=== PATIENT | female | born 2000 | race Caucasian/White ===

== ENCOUNTER 2020-05-18 21:45 | Emergency (ER) | payer MEDICAID ==
[~2020-05-18] VITALS: Ht 162.6 cm; Wt 81.0 kg
[~2020-05-18 21:45] MED LIST: CLON-529 PO; DIVA125T31 PO; METH20CP12 PO; ZIPR20CA12 PO
--- NOTE | 2020-05-18 22:47 | NUR ---
pt refused her blood draw. Informed phleb to tell PA and she did.
--- NOTE | 2020-05-18 22:48 | NUR ---
Dr Holm at BS.
--- NOTE | 2020-05-18 22:54 | NUR ---
PT UPSET DURING BLOOD DRAW BUT ABLE TO COMPLETE AND QUICKLY BACK TO RELAXED AND COOPERATIVE.
[2020-05-18 23:15] LABS: URINE HCG NEGATIVE (NEG)
[2020-05-18 23:18] LABS: BASOPHILS % (AUTO) 0.4 % (0-1); EOSINOPHILS # (AUTO) 0.6 X10'3 (0-0.9); EOSINOPHILS % (AUTO) 5.6 % (0-6); HEMATOCRIT 38.4 % (35.0-45.0); HEMOGLOBIN 12.8 g/dl (12.0-16.0); LYMPHOCYTES # (AUTO) 2.8 X10'3 (1.1-4.8); LYMPHOCYTES % (AUTO) 27.7 % (21-51); MEAN CORPUSCULAR HEMOGLOBIN 29.4 PG (27.0-31.0); MEAN CORPUSCULAR HGB CONC 33.5 g/dL (33.0-36.5); MEAN CORPUSCULAR VOLUME 87.9 FL (78-98); MEAN PLATELET VOLUME 7.9 FL (7.4-10.4); MONOCYTES # (AUTO) 0.7 X10'3 (0-0.9); MONOCYTES % (AUTO) 7.3 % (2-12); NEUTROPHILS # (AUTO) 5.9 X10'3 (1.8-7.7); PLATELET COUNT 288 X10'3 (140-440); RED BLOOD COUNT 4.37 X10'6 (4.20-5.60); RED CELL DISTRIBUTION WIDTH 13.5 % (11.5-14.5)
[2020-05-18 23:21] LABS: ALANINE AMINOTRANSFERASE 26 U/L (12-78); ALBUMIN 3.7 G/DL (3.4-5.0); ALBUMIN/GLOBULIN RATIO 0.9 (1.1-1.5); ALKALINE PHOSPHATASE 96 IU/L (20-180); ANION GAP 11 (8-16); ASPARTATE AMINO TRANSFERASE 14 U/L (10-37); BILIRUBIN,TOTAL 0.1 MG/DL (0.1-1.0); BLOOD UREA NITROGEN 17 MG/DL (7-18); BUN/CREATININE RATIO 29.3 (6.6-38.0); CALCIUM 9.2 MG/DL (8.5-10.1); CHLORIDE 107 MMOL/L (99-107); CREATININE 0.58 MG/DL (0.40-0.90); ETHANOL < 0.010 GM/DL (0.0-0.010); GLUCOSE 98 MG/DL (70-104); POTASSIUM 4.9 MMOL/L (3.5-5.1); SODIUM 143 MMOL/L (135-145); TOTAL CARBON DIOXIDE 25.3 MMOL/L (24-32); TOTAL PROTEIN 7.7 G/DL (6.4-8.2); eGFR > 90 ML/MIN
[2020-05-18 23:32] LABS: URINE AMPHETAMINE SCREEN NEGATIVE (Neg); URINE BARBITUATE SCREEN NEGATIVE (Neg); URINE BENZODIAZEPINES SCREEN NEGATIVE (Neg); URINE CANNABINOID SCREEN NEGATIVE (Neg); URINE COCAINE SCREEN NEGATIVE (Neg); URINE METHADONE SCREEN NEGATIVE (Neg); URINE OPIATE SCREEN NEGATIVE (Neg); URINE PHENCYCLIDINE SCREEN NEGATIVE (Neg)
--- NOTE | 2020-05-19 00:47 | NUR ---
Pt resting with eyes closed in no apparent distress. Remains cooperative at this time.
--- NOTE | 2020-05-19 02:04 | NUR ---
No change in condition, con to rest quietly.
[2020-05-19 02:05] LABS: CLARITY,URINE CLEAR (Clear); COLOR,URINE YELLOW (Yellow); GLUCOSE, URINE NEGATIVE (Neg); KETONES,URINE NEGATIVE (Neg); LEUKOCYTE ESTERASE ,URINE NEGATIVE (Neg); NITRITES, URINE NEGATIVE (Neg); OCCULT BLOOD,URINE SMALL (Neg); PH,URINE 5.5 (4.8-8.0); PROTEIN,URINE NEGATIVE (Neg); UROBILINOGEN,URINE 0.2 E.U/dL (0.2-1.0)
[2020-05-19 02:10] LABS: UA COLLECTION TYPE CLN CATCH MIDSTREAM
[2020-05-19 02:11] LABS: BACTERIA,URINE 1+ /HPF (Neg); CAL OXALATE CRYSTALS 2+ /HPF (NEGATIVE); RBC,URINE 0-2 /HPF (0-2); SQUAMOUS EPITHELIAL CELL,UR MANY /LPF (FEW); WBC,URINE 0-4 /HPF (0-4)
--- NOTE | 2020-05-19 04:16 | NUR ---
Pt con to rest with eyes closed. Repositioning self.
--- NOTE | 2020-05-19 06:11 | NUR ---
PT REMAINS RESTING WITH EYES CLOSED. RESPIRATIONS EVEN AND UNLABORED.
--- NOTE | 2020-05-19 06:30 | NUR ---
PATENT [facility].
--- NOTE | 2020-05-19 08:00 | NUR ---
PATIENT REMAINS ASLEEP,RESPIRATIONS REGULAR.WE WILL MONITOR.
[2020-05-19 08:44] VITALS: BP 104/66
--- NOTE | 2020-05-19 09:00 | NUR ---
PATIENT IN THE ROOM ASLEEP.
--- NOTE | 2020-05-19 10:50 | NUR ---
ATE BREAKFAST.DENIES SI OR HI AT THIS TIME,PATIENT COOPERATIVE.REPORTS HISTORY OF CUTTING HERSELF MORE THAN ONCE IN THE PAST.WE WILL MONITOR.
--- NOTE | 2020-05-19 10:52 | NUR ---
PATIENT CONSUMED ABOUT 75% OF BREAKFAST.
--- NOTE | 2020-05-19 13:31 | NUR ---
per [facility] patient's packet needs to be refax since [facility] have not receive it yet.Fleet Service Clerk made aware.
== END 2020-05-19 18:58 | disposition home or self-care (01) ==
LOC: ER 21:46
DX: Z73.6 Limitation of activities due to disability (principal); Z79.899 Other long term (current) drug therapy
CPT/HCPCS: 36415; 80053; 80305; 80320; 81001; 81025; 84443; 85025; 99285

== ENCOUNTER 2020-09-28 11:02 | Emergency (ER) | payer MEDICAID ==
[~2020-09-28] VITALS: Ht 162.6 cm; Wt 77.2 kg
[2020-09-28 11:06] VITALS: BP 129/86
[2020-09-28] MEDS ORDERED: LEVONORGESTREL 1.5 MG (Plan B One-Step) TABLET PO (11:45)
[2020-09-28] MEDS ORDERED: metroNIDAZOLE 500mg tablet PO ONE (11:45)
[2020-09-28] MEDS ORDERED: azithromycin 250mg tablet PO ONE (11:45)
[2020-09-28] MEDS ORDERED: CefTRIAXone 250MG IM Kit w/LIDOcaine IM ONE (11:45)
[2020-09-28 13:05] LABS: URINE HCG NEGATIVE (NEG)
[2020-09-28 13:07] LABS: CLARITY,URINE CLOUDY (Clear); COLOR,URINE YELLOW (Yellow); GLUCOSE, URINE NEGATIVE (Neg); KETONES,URINE NEGATIVE (Neg); LEUKOCYTE ESTERASE ,URINE NEGATIVE (Neg); NITRITES, URINE NEGATIVE (Neg); OCCULT BLOOD,URINE NEGATIVE (Neg); PH,URINE 6.5 (4.8-8.0); PROTEIN,URINE NEGATIVE (Neg)
[2020-09-28 13:08] LABS: UA COLLECTION TYPE VOIDED
[2020-09-28 13:13] LABS: BACTERIA,URINE 1+ /HPF (Neg); MUCUS STRANDS MODERATE /LPF (Neg); RBC,URINE 0-2 /HPF (0-2); SQUAMOUS EPITHELIAL CELL,UR MANY /LPF (FEW); WBC,URINE 0-4 /HPF (0-4)
--- NOTE | 2020-09-28 14:10 | NUR ---
[facility] notified pt being driected t ohte for further testing.
== END 2020-09-28 13:38 | disposition home or self-care (01) ==
LOC: EEVIPCON 11:03 → ER 11:03
DX: T76.21XA Adult sexual abuse, suspected, initial encounter (principal); Z79.899 Other long term (current) drug therapy; Y09 Assault by unspecified means
CPT/HCPCS: 81001; 81025; 99284; J3490

== ENCOUNTER 2021-01-29 13:57 | Emergency (ER) | payer MEDICAID ==
[~2021-01-29] VITALS: Ht 162.6 cm; Wt 77.7 kg
[2021-01-29 14:17] VITALS: BP 127/68
== END 2021-01-29 15:47 | disposition home or self-care (01) ==
LOC: ER 13:58
DX: S46.911A Strain of unspecified muscle, fascia and tendon at shoulder and upper arm level, right arm, initial encounter (principal); Q86.0 Fetal alcohol syndrome (dysmorphic); Z79.899 Other long term (current) drug therapy; X58.XXXA Exposure to other specified factors, initial encounter; Y93.89 Activity, other specified; Y92.89 Other specified places as the place of occurrence of the external cause; Y99.8 Other external cause status
CPT/HCPCS: 73030; 99283

== ENCOUNTER 2021-07-21 12:36 | Emergency (ER) | payer MEDICAID ==
[~2021-07-21] VITALS: Ht 162.6 cm; Wt 65.9 kg
[2021-07-21 13:14] LABS: CLARITY,URINE SLIGHTLY CLOUDY (Clear); COLOR,URINE YELLOW (Yellow); GLUCOSE, URINE NEGATIVE (Neg); KETONES,URINE NEGATIVE (Neg); LEUKOCYTE ESTERASE ,URINE TRACE (Neg); NITRITES, URINE NEGATIVE (Neg); OCCULT BLOOD,URINE NEGATIVE (Neg); PROTEIN,URINE NEGATIVE (Neg)
[2021-07-21 13:17] LABS: URINE HCG NEGATIVE (NEG)
[2021-07-21 13:21] LABS: UA COLLECTION TYPE CLN CATCH MIDSTREAM
[2021-07-21 13:22] LABS: BACTERIA,URINE 2+ /HPF (Neg); MUCUS STRANDS MODERATE /LPF (Neg); SQUAMOUS EPITHELIAL CELL,UR MANY /LPF (FEW)
[2021-07-21 13:23] LABS: RBC,URINE 0-2 /HPF (0-2)
[2021-07-21 14:07] VITALS: BP 113/76
== END 2021-07-21 14:10 | disposition home or self-care (01) ==
LOC: ER 12:36
DX: R11.0 Nausea (principal); R10.32 Left lower quadrant pain; Z86.69 Personal history of other diseases of the nervous system and sense organs; Z79.899 Other long term (current) drug therapy
CPT/HCPCS: 81001; 81025; 82948; 99283

== ENCOUNTER 2021-07-24 00:31 | Emergency (ER) | payer MEDICAID ==
[~2021-07-24] VITALS: Ht 162.6 cm; Wt 65.9 kg
[2021-07-24 00:35] VITALS: BP 111/71
[2021-07-24] MEDS ORDERED: fluconazole 150mg tablet PO ONE (01:45)
[2021-07-24] MEDS ORDERED: azithromycin 250mg tablet PO ONE (01:45)
[2021-07-24] MEDS ORDERED: CEFTRIAXONE 500 MG VIAL IM ONE (01:45)
[2021-07-24] MEDS ORDERED: CefTRIAXone 1000mg IM Kit (w/lidocaine diluent) IM ONE (01:50)
[2021-07-24] MEDS ORDERED: MICO45CR46 VG (01:51)
[2021-07-24] MEDS ORDERED: METR-159 PO (01:51)
== END 2021-07-24 02:12 | disposition home or self-care (01) ==
LOC: ER 00:32
DX: N76.0 Acute vaginitis (principal); R19.7 Diarrhea, unspecified; R11.10 Vomiting, unspecified; Z79.899 Other long term (current) drug therapy
CPT/HCPCS: 99283

== ENCOUNTER 2021-08-19 17:06 | Emergency (ER) | payer MEDICAID ==
[~2021-08-19] VITALS: Ht 162.6 cm; Wt 70.0 kg
[~2021-08-19 17:06] MED LIST changes: +MICO45CR46 VG
[2021-08-19 17:19] VITALS: BP 113/84
== END 2021-08-19 18:39 | disposition home or self-care (01) ==
LOC: ER 17:07
DX: S90.414A Abrasion, right lesser toe(s), initial encounter (principal); M79.674 Pain in right toe(s); F41.9 Anxiety disorder, unspecified; Z86.69 Personal history of other diseases of the nervous system and sense organs; Z79.2 Long term (current) use of antibiotics; Z79.899 Other long term (current) drug therapy; X58.XXXA Exposure to other specified factors, initial encounter; Y93.89 Activity, other specified; Y92.89 Other specified places as the place of occurrence of the external cause; Y99.8 Other external cause status
CPT/HCPCS: 73660; 99283

== ENCOUNTER 2021-10-10 08:44 | Emergency (ER) | payer MEDICAID ==
[~2021-10-10] VITALS: Ht 162.6 cm; Wt 79.5 kg
[~2021-10-10 08:44] MED LIST changes: -MICO45CR46 VG
[2021-10-10 08:46] VITALS: BP 137/87
[2021-10-10 09:06] LABS: CLARITY,URINE CLOUDY (Clear); COLOR,URINE YELLOW (Yellow); GLUCOSE, URINE NEGATIVE (Neg); KETONES,URINE NEGATIVE (Neg); LEUKOCYTE ESTERASE ,URINE NEGATIVE (Neg); NITRITES, URINE NEGATIVE (Neg); OCCULT BLOOD,URINE NEGATIVE (Neg); PH,URINE 6.5 (4.8-8.0); PROTEIN,URINE NEGATIVE (Neg); UROBILINOGEN,URINE 0.2 E.U/dL (0.2-1.0)
[2021-10-10 09:10] LABS: URINE HCG POSITIVE (NEG)
[2021-10-10 09:13] LABS: UA COLLECTION TYPE CLN CATCH MIDSTREAM
[2021-10-10 09:14] LABS: MUCUS STRANDS MODERATE /LPF (Neg); SQUAMOUS EPITHELIAL CELL,UR MANY /LPF (FEW)
[2021-10-10 09:15] LABS: BACTERIA,URINE 2+ /HPF (Neg); RBC,URINE 0-2 /HPF (0-2); WBC,URINE 0-4 /HPF (0-4)
--- NOTE | 2021-10-10 09:53 | NUR ---
pt refused blood draw. informed danitza who stated to sign pt out ama. ama paperwork completed and pt aware to follow up with obgyn and pcp.
== END 2021-10-18 08:51 | disposition left against medical advice (07) ==
LOC: ER 08:44
DX: O26.891 Other specified pregnancy related conditions, first trimester (principal); R51.9 Headache, unspecified; O99.341 Other mental disorders complicating pregnancy, first trimester; F41.9 Anxiety disorder, unspecified; Z86.2 Personal history of diseases of the blood and blood-forming organs and certain disorders involving the immune mechanism; Z79.899 Other long term (current) drug therapy; Z3A.00 Weeks of gestation of pregnancy not specified
CPT/HCPCS: 81001; 81025; 99283

== ENCOUNTER 2021-10-15 18:08 | Emergency (ER) | payer MEDICAID ==
[~2021-10-15] VITALS: Ht 162.6 cm; Wt 75.0 kg
--- NOTE | 2021-10-15 18:24 | NUR ---
Spoke with Bharath extruding department supervisor, from the [facility] hotline, who stated that she would have someone sent over.
--- NOTE | 2021-10-15 18:45 | NUR ---
BRITTN[facility] RN WAS CALLED TO COME IN, KIT APPROVED BY [employer]. CASE# [id number]. [facility] HAS ALSO BEEN CALLED, ADVOCATE COMING IN. PT WAS PLACED IN ROOM T2
[2021-10-15 19:16] LABS: URINE HCG POSITIVE (NEG)
[2021-10-15 19:18] LABS: CLARITY,URINE CLEAR (Clear); COLOR,URINE YELLOW (Yellow); GLUCOSE, URINE NEGATIVE (Neg); KETONES,URINE TRACE mg/dl (Neg); LEUKOCYTE ESTERASE ,URINE NEGATIVE (Neg); NITRITES, URINE NEGATIVE (Neg); OCCULT BLOOD,URINE NEGATIVE (Neg); PH,URINE 6.5 (4.8-8.0); PROTEIN,URINE NEGATIVE (Neg); UROBILINOGEN,URINE 0.2 E.U/dL (0.2-1.0)
[2021-10-15] MEDS ORDERED: azithromycin 250mg tablet PO ONE ×2 (19:20→20:20)
[2021-10-15] MEDS ORDERED: CefTRIAXone 250MG IM Kit w/LIDOcaine IM ONE (19:20)
[2021-10-15 19:25] LABS: UA COLLECTION TYPE CLN CATCH MIDSTREAM
[2021-10-15] MEDS ORDERED: CefTRIAXone 500MG IM Kit w/LIDOcaine IM ONE (20:15)
--- NOTE | 2021-10-16 00:10 | NUR ---
ATTEMPTED TO CALL PATIENT'S GRANDMA, NO ANSWER LEFT MESSAGE
--- NOTE | 2021-10-16 00:51 | NUR ---
PT SIGNED MEDICAL RELEASE FORM FOR LABS SHOWING HCG.
[2021-10-16 01:04] VITALS: BP 107/58
== END 2021-10-16 01:07 | disposition home or self-care (01) ==
LOC: EEVIPCON 18:09 → ER 18:09
DX: O26.891 Other specified pregnancy related conditions, first trimester (principal); T74.21XA Adult sexual abuse, confirmed, initial encounter; Z3A.08 8 weeks gestation of pregnancy
CPT/HCPCS: 76801; 81003; 81025; 99284

== ENCOUNTER 2022-07-10 19:31 | Emergency (ER) | payer MEDICAID, OTHER ==
[~2022-07-10] VITALS: Ht 162.6 cm; Wt 68.2 kg
[2022-07-10 20:21] LABS: CLARITY,URINE SLIGHTLY CLOUDY (Clear); COLOR,URINE YELLOW (Yellow); GLUCOSE, URINE NEGATIVE (Neg); KETONES,URINE TRACE mg/dl (Neg); LEUKOCYTE ESTERASE ,URINE NEGATIVE (Neg); NITRITES, URINE NEGATIVE (Neg); OCCULT BLOOD,URINE LARGE (Neg); PH,URINE 5.5 (4.8-8.0); PROTEIN,URINE TRACE mg/dl (Neg); UROBILINOGEN,URINE 0.2 E.U/dL (0.2-1.0)
[2022-07-10 20:22] LABS: URINE HCG NEGATIVE (NEG)
[2022-07-10 20:28] LABS: UA COLLECTION TYPE CLN CATCH MIDSTREAM
[2022-07-10 20:29] LABS: BACTERIA,URINE 1+ /HPF (Neg); MUCUS STRANDS FEW /LPF (Neg); SQUAMOUS EPITHELIAL CELL,UR MANY /LPF (FEW)
[2022-07-10 20:30] LABS: TRANSITIONAL EPI CELLS,URINE FEW /HPF
[2022-07-10 21:24] VITALS: BP 122/24
== END 2022-07-10 23:18 | disposition home or self-care (01) ==
LOC: ER 19:32
DX: N93.9 Abnormal uterine and vaginal bleeding, unspecified (principal); F41.9 Anxiety disorder, unspecified; Z79.899 Other long term (current) drug therapy
CPT/HCPCS: 81001; 81025; 99283

== ENCOUNTER 2022-08-04 10:28 | Emergency (ER) | payer MEDICAID ==
[~2022-08-04] VITALS: Ht 162.6 cm; Wt 73.6 kg
[2022-08-04 10:41] VITALS: BP 116/74
--- NOTE | 2022-08-04 11:26 | NUR ---
Pt in FTC, Pt c/o pain to L elbow. 8/10 pain, intermitten. Unable to move due to pain. Sharp shooting pain in elbow down forearm. Pt states last night she fell and hurt her arm. Pt educated to POC. Pt in agreement. Pending MD orders, hetal and bassem.
[2022-08-04] MEDS ORDERED: TRAM50TA2 PO (12:14)
== END 2022-08-04 12:31 | disposition home or self-care (01) ==
LOC: ER 10:29
DX: S50.12XA Contusion of left forearm, initial encounter (principal); M25.522 Pain in left elbow; F41.9 Anxiety disorder, unspecified; Z91.030 Bee allergy status; Z79.899 Other long term (current) drug therapy; W01.0XXA Fall on same level from slipping, tripping and stumbling without subsequent striking against object, initial encounter; Y93.89 Activity, other specified; Y92.89 Other specified places as the place of occurrence of the external cause; Y99.8 Other external cause status
CPT/HCPCS: 73090; 99284

== ENCOUNTER 2022-09-12 01:33 | Emergency (ER) | payer MEDICAID ==
[~2022-09-12] VITALS: Ht 162.6 cm; Wt 81.8 kg
[2022-09-12 01:53] LABS: URINE HCG NEGATIVE (NEG)
[2022-09-12 02:06] LABS: URINE AMPHETAMINE SCREEN NEGATIVE (Neg); URINE BARBITUATE SCREEN NEGATIVE (Neg); URINE BENZODIAZEPINES SCREEN NEGATIVE (Neg); URINE CANNABINOID SCREEN POSITIVE (Neg); URINE COCAINE SCREEN NEGATIVE (Neg); URINE METHADONE SCREEN NEGATIVE (Neg); URINE OPIATE SCREEN NEGATIVE (Neg); URINE PHENCYCLIDINE SCREEN NEGATIVE (Neg)
[2022-09-12 02:45] VITALS: BP 119/85
== END 2022-09-12 02:47 | disposition home or self-care (01) ==
LOC: ER 01:33
DX: R06.02 Shortness of breath (principal)
CPT/HCPCS: 80305; 81025; 99283

== ENCOUNTER 2022-11-25 21:49 | Emergency (ER) | payer MEDICAID ==
[~2022-11-25] VITALS: Ht 162.6 cm; Wt 65.5 kg
[2022-11-25 22:21] VITALS: BP 108/88; PULSE 77; RESP 16; TEMP 98; O2SAT 96
[2022-11-25 23:02] LABS: URINE HCG NEGATIVE (NEG)
== END 2022-11-26 00:45 | disposition home or self-care (01) ==
LOC: ER 21:50
DX: R11.2 Nausea with vomiting, unspecified (principal); Z32.02 Encounter for pregnancy test, result negative; F41.9 Anxiety disorder, unspecified; Z91.030 Bee allergy status
CPT/HCPCS: 81025; 99283

== ENCOUNTER 2022-11-29 15:35 | Emergency (ER) | payer MEDICAID ==
[~2022-11-29] VITALS: Ht 162.6 cm; Wt 80.0 kg
[2022-11-29 16:00] VITALS: BP 117/78; PULSE 83; RESP 16; TEMP 98.2; O2SAT 98
[2022-11-29 16:27] LABS: CLARITY,URINE CLEAR (Clear); COLOR,URINE YELLOW (Yellow); GLUCOSE, URINE NEGATIVE (Neg); KETONES,URINE NEGATIVE (Neg); LEUKOCYTE ESTERASE ,URINE NEGATIVE (Neg); NITRITES, URINE NEGATIVE (Neg); OCCULT BLOOD,URINE NEGATIVE (Neg); PROTEIN,URINE NEGATIVE (Neg); UROBILINOGEN,URINE 0.2 E.U/dL (0.2-1.0)
[2022-11-29 16:29] LABS: URINE HCG NEGATIVE (NEG)
[2022-11-29 16:30] LABS: UA COLLECTION TYPE VOIDED
--- NOTE | 2022-11-29 16:50 | NUR ---
PT REFUSES AN ASSESSMENT FROM NURSING.
== END 2022-11-29 17:16 | disposition home or self-care (01) ==
LOC: ER 15:35
DX: R10.30 Lower abdominal pain, unspecified (principal); R11.2 Nausea with vomiting, unspecified; F17.200 Nicotine dependence, unspecified, uncomplicated; F41.9 Anxiety disorder, unspecified; F12.10 Cannabis abuse, uncomplicated; Z59.00 Homelessness unspecified; Z91.030 Bee allergy status; Z79.899 Other long term (current) drug therapy; Z79.1 Long term (current) use of non-steroidal anti-inflammatories (NSAID)
CPT/HCPCS: 81003; 81025; 85025; 99283

== ENCOUNTER 2023-04-01 20:03 | Emergency (ER) | payer MEDICAID ==
[~2023-04-01] VITALS: Ht 162.6 cm; Wt 69.3 kg
[2023-04-01 20:05] VITALS: TEMP 98.2
--- NOTE | 2023-04-01 20:27 | NUR ---
CASE# [id number]
--- NOTE | 2023-04-01 21:14 | NUR ---
CASE #[id number] VIA [facility]
[2023-04-01] MEDS ORDERED: HYDROcodone/acetaminophen 5mg/325mg tablet PO ONE (22:00)
[2023-04-01 22:33] VITALS: BP 108/71; PULSE 63; RESP 16; O2SAT 98
== END 2023-04-01 23:50 | disposition home or self-care (01) ==
LOC: ER 20:03
DX: S20.212A Contusion of left front wall of thorax, initial encounter (principal); X58.XXXA Exposure to other specified factors, initial encounter; Y93.89 Activity, other specified; Y92.89 Other specified places as the place of occurrence of the external cause; Y99.8 Other external cause status
CPT/HCPCS: 73502; 99284

== ENCOUNTER 2023-06-21 21:59 | Emergency (ER) | payer MEDICAID ==
[~2023-06-21] VITALS: Ht 162.6 cm; Wt 74.1 kg
[2023-06-21 22:16] VITALS: TEMP 98.7
[2023-06-21] MEDS ORDERED: HYDR-3686 PO (22:41)
[2023-06-21 23:17] VITALS: BP 113/70; PULSE 103; RESP 20; O2SAT 99
== END 2023-06-21 23:19 | disposition home or self-care (01) ==
LOC: ER 22:02
DX: O99.341 Other mental disorders complicating pregnancy, first trimester (principal); F12.90 Cannabis use, unspecified, uncomplicated; Z3A.10 10 weeks gestation of pregnancy; Z91.030 Bee allergy status; Z88.8 Allergy status to other drugs, medicaments and biological substances; Z79.899 Other long term (current) drug therapy; Z79.1 Long term (current) use of non-steroidal anti-inflammatories (NSAID)
CPT/HCPCS: 99283

== ENCOUNTER 2023-08-02 17:51 | Emergency (ER) | payer MEDICAID ==
[~2023-08-02] VITALS: Ht 162.6 cm; Wt 74.1 kg
[~2023-08-02 17:51] MED LIST changes: +HYDR-3686 PO
[2023-08-02 18:20] LABS: BILIRUBIN,URINE NEGATIVE (Neg); GLUCOSE, URINE NEGATIVE (Neg); KETONES,URINE TRACE mg/dl (Neg); LEUKOCYTE ESTERASE ,URINE MODERATE (Neg); NITRITES, URINE NEGATIVE (Neg); OCCULT BLOOD,URINE NEGATIVE (Neg); PROTEIN,URINE NEGATIVE (Neg)
[2023-08-02 18:21] LABS: CLARITY,URINE SLIGHTLY CLOUDY (Clear); COLOR,URINE DARK YELLOW (Yellow); UA COLLECTION TYPE CLN CATCH MIDSTREAM
[2023-08-02 18:33] LABS: WBC,URINE 20-30 /HPF (0-4)
[2023-08-02 18:34] LABS: BACTERIA,URINE 4+ /HPF (Neg); CAL OXALATE CRYSTALS FEW /HPF (NEGATIVE); MUCUS STRANDS MODERATE /LPF (Neg); SQUAMOUS EPITHELIAL CELL,UR MANY /LPF (FEW)
[2023-08-02 19:45] VITALS: BP 114/77; PULSE 100; RESP 16; TEMP 98.1; O2SAT 96
[2023-08-02] MEDS ORDERED: NITR100C6 PO (19:46)
[2023-08-02] MEDS ORDERED: ACET-1015 PO (19:46)
== END 2023-08-02 19:53 | disposition home or self-care (01) ==
LOC: ER 17:52
DX: O23.42 Unspecified infection of urinary tract in pregnancy, second trimester (principal); N39.0 Urinary tract infection, site not specified; F12.90 Cannabis use, unspecified, uncomplicated; Z91.030 Bee allergy status; Z88.6 Allergy status to analgesic agent; Z3A.19 19 weeks gestation of pregnancy
CPT/HCPCS: 76805; 81001; 99284

== ENCOUNTER 2023-09-25 08:50 | Emergency (ER) | payer MEDICAID ==
[~2023-09-25] VITALS: Ht 162.6 cm; Wt 78.6 kg
[~2023-09-25 08:50] MED LIST changes: +NITR100C6 PO
[2023-09-25 09:26] VITALS: BP 125/81; PULSE 124; RESP 17; TEMP 98.7; O2SAT 97
[2023-09-25] MEDS ORDERED: iohexol 350MG/ML 100ml bottle IV ONE (10:10)
== END 2023-09-25 10:25 | disposition left against medical advice (07) ==
LOC: ER 08:51
DX: O26.892 Other specified pregnancy related conditions, second trimester (principal); Z3A.27 27 weeks gestation of pregnancy; R07.9 Chest pain, unspecified; R94.31 Abnormal electrocardiogram [ECG] [EKG]; F41.0 Panic disorder [episodic paroxysmal anxiety]; F12.90 Cannabis use, unspecified, uncomplicated; Z59.00 Homelessness unspecified; Z88.8 Allergy status to other drugs, medicaments and biological substances
CPT/HCPCS: 71045; 93005; 99283; J3490; Q9967

== ENCOUNTER 2024-04-20 03:23 | Emergency (ER) | payer MEDICAID ==
[~2024-04-20] VITALS: Ht 162.6 cm; Wt 72.2 kg
[2024-04-20] MEDS: haloperidol lactate 5mg/ml inj IM ONE (05:34)
[2024-04-20] MEDS: diphenhydrAMINE 50 mg/ml inj IM ONE (05:34)
[2024-04-20] MEDS: LORazepam 2 mg/ml vial IM ONE (05:34)
[2024-04-20 05:44] LABS: BASOPHILS % (AUTO) 0.4 % (0-1); EOSINOPHILS % (AUTO) 0.6 % (0-6); HEMOGLOBIN 13.5 g/dl (12.0-16.0); LYMPHOCYTES # (AUTO) 1.8 X10'3 (1.1-4.8); LYMPHOCYTES % (AUTO) 46.1 % (21-51); MEAN CORPUSCULAR HEMOGLOBIN 28.4 PG (27.0-31.0); MEAN CORPUSCULAR VOLUME 86.2 FL (78-98); MONOCYTES # (AUTO) 0.6 X10'3 (0-0.9); MONOCYTES % (AUTO) 14.6 % (2-12); NEUTROPHILS # (AUTO) 1.5 X10'3 (1.8-7.7); NEUTROPHILS % (AUTO) 38.3 % (42-75); PLATELET COUNT 277 X10'3 (140-440); RED BLOOD COUNT 4.76 X10'6 (4.20-5.60); RED CELL DISTRIBUTION WIDTH 14.9 % (11.5-14.5); WHITE BLOOD COUNT 3.8 X10'3 (4.5-11.0)
[2024-04-20 05:45] LABS: URINE HCG NEGATIVE (NEG)
[2024-04-20 05:49] LABS: BILIRUBIN,URINE SMALL (Neg); CLARITY,URINE SLIGHTLY CLOUDY (Clear); COLOR,URINE YELLOW (Yellow); GLUCOSE, URINE NEGATIVE (Neg); KETONES,URINE 40 mg/dl (Neg); LEUKOCYTE ESTERASE ,URINE NEGATIVE (Neg); NITRITES, URINE NEGATIVE (Neg); OCCULT BLOOD,URINE TRACE-INTACT (Neg); PROTEIN,URINE 30 mg/dl (Neg); UROBILINOGEN,URINE 0.2 E.U/dL (0.2-1.0)
[2024-04-20] MEDS ORDERED: ALBU10.7 (05:50)
[2024-04-20] MEDS ORDERED: FLUT16SP26 (05:50)
[2024-04-20] MEDS ORDERED: RIVA10TA PO (05:50)
[2024-04-20 05:54] LABS: UA COLLECTION TYPE CLN CATCH MIDSTREAM
[2024-04-20 05:56] LABS: BACTERIA,URINE FEW /HPF (Neg); MUCUS STRANDS FEW /LPF (Neg); RBC,URINE NONE SEEN /HPF (0-2); SQUAMOUS EPITHELIAL CELL,UR MANY /LPF (FEW); WBC,URINE 0-4 /HPF (0-4)
[2024-04-20 06:06] LABS: ALBUMIN 4.2 G/DL (3.4-5.0); ANION GAP 13 (8-16); BLOOD UREA NITROGEN 15 MG/DL (7-18); BUN/CREATININE RATIO 19.5 (10.0-20.0); CALCIUM 8.8 MG/DL (8.5-10.1); CHLORIDE 101 MMOL/L (99-107); CREATININE 0.77 MG/DL (0.40-0.90); ETHANOL < 10 MG/DL (<10); GLUCOSE 100 MG/DL (70-104); POTASSIUM 3.3 MMOL/L (3.5-5.1); SODIUM 140 MMOL/L (135-145); THYROID STIMULATING HORMONE 1.79 ulU/ml (0.34-4.50); TOTAL CARBON DIOXIDE 26.5 MMOL/L (24-32); URINE AMPHETAMINE SCREEN NEGATIVE (Neg); URINE BARBITUATE SCREEN NEGATIVE (Neg); URINE BENZODIAZEPINES SCREEN NEGATIVE (Neg); URINE CANNABINOID SCREEN POSITIVE (Neg); URINE COCAINE SCREEN NEGATIVE (Neg); URINE METHADONE SCREEN NEGATIVE (Neg); URINE OPIATE SCREEN NEGATIVE (Neg); URINE PHENCYCLIDINE SCREEN NEGATIVE (Neg); eCRCL 98 ML/MIN; eGFR > 90 ML/MIN
[2024-04-20] MEDS: potassium chloride 10mEq ER tablet PO SCH (07:25)
[2024-04-20 12:44] VITALS: BP 118/86; PULSE 85; RESP 16; TEMP 98.2; O2SAT 100
== END 2024-04-20 11:31 | disposition home or self-care (01) ==
LOC: ER 03:24
DX: R45.851 Suicidal ideations (principal); B34.9 Viral infection, unspecified; F32.A Depression, unspecified; F41.9 Anxiety disorder, unspecified; F41.0 Panic disorder [episodic paroxysmal anxiety]; F12.90 Cannabis use, unspecified, uncomplicated; Z59.00 Homelessness unspecified; Z91.030 Bee allergy status; Z88.8 Allergy status to other drugs, medicaments and biological substances; Z79.899 Other long term (current) drug therapy
CPT/HCPCS: 36415; 71045; 80048; 80305; 80320; 81001; 81025; 84443; 85025; 87811; 99284

== ENCOUNTER 2024-10-22 11:51 | Emergency (ER) | payer MEDICAID ==
[~2024-10-22] VITALS: Ht 162.6 cm; Wt 77.0 kg
[~2024-10-22 11:51] MED LIST changes: +ALBU10.7; -CLON-529 PO; -DIVA125T31 PO; +FLUT16SP26; -HYDR-3686 PO; -METH20CP12 PO; -NITR100C6 PO; +RIVA10TA PO; -ZIPR20CA12 PO
[2024-10-22 11:57] VITALS: BP 107/71; PULSE 77; RESP 16; TEMP 98; O2SAT 98
[2024-10-22] MEDS ORDERED: ketorolac trometh 30MG/ML vial 30 MG/ML VIAL IM ONE (12:30)
--- NOTE | 2024-10-22 12:48 | Physician Documentation ---
History of Present Illness ~ Chief Complaint: Headache Stated Complaint: HEADACHE Time Seen by MD: 12:10 Primary Medical Doctor: NO PMD HPI 24-year-old female presents to the ED with a complaint of headache and nausea for the last two days. States that she also thinks she may be . Does not recall her last menstrual period Medication Reconciliation Allergies: Coded Allergies: bee venom protein (honey bee) (Verified Allergy, Severe, 10/11/22) divalproex sodium (Verified Allergy, Unknown, 10/11/22) ziprasidone (Verified Allergy, Unknown, 10/11/22) Scheduled Rivaroxaban (Xarelto), 1 TAB PO DAILY, (Reported) Miscellaneous Medications Albuterol Sulfate/Budesonide (Airsupra 90-80 Mcg Inhaler), (Reported) Fluticasone Propionate (Fluticasone Propionate), (Reported) Past Medical History Past Medical History: Seizures, *PSYCH*, Anxiety, Panic Disorder Past Surgical History: no surgical history Alcohol Use: None Drug Use: marijuana Lives In: Homeless Review of Systems All Other Systems at this time: Reviewed and Negative ROS As stated above in the HPI, otherwise all systems are reviewed and negative. Physical Exam Vital Signs: Temperature: 98.0, Source: Temporal, Heart Rate: 77, Respiratory Rate: 16, BP: 107/71, Pulse Oximetry: 98, Weight: 77.000 Oxygen Flow Rate: 0 Physical Exam General: Alert, no apparent distress. HEENT: PERRL, EOMI, no injection, moist mucous membranes. Neck: Full range of motion. Respiratory: Lungs clear, no respiratory distress. Gastrointestinal: Soft, nontender, nondistended. Bowels sounds present. Neurologic: Oriented x4. Psychiatric: Normal mood and affect. Skin: Normal color, warm and dry. No edema, no ecchymosis. Progress Results/Orders Results/Orders Completed Orders - GONZALO MARTINEZ TRACK HOE OPERATOR Urinalysis, Cult If Indicated (10/22/24 12:44) Hcg, Ur Ql (10/22/24 12:44) Metoclopramide Inj (Reglan Inj) (10/22/24 12:55) Diphenhydramine Inj (Benadryl Inj.) (10/22/24 12:55) Ketorolac Trometh 30mg/Ml Vial (Toradol (10/22/24 13:25) Ibuprofen Tablet (Motrin Tablet) (10/22/24 13:35) Vital Signs 10/22/24 11:57 Temp 98.0 Pulse 77 Resp 16 B/P (MAP) 107/71 Pulse Ox 98 O2 Flow Rate 0 Laboratory Tests Test 10/22/24 12:47 Urine Specimen Description Non-specified Urine Color Yellow Urine Clarity Clear Urine pH 7.5 Urine Specific [place] 1.015 Urine Protein Negative Urine Glucose (UA) Negative Urine Ketones Negative Urine Occult Blood Negative Urine Nitrite Negative Urine Bilirubin Negative Urine Urobilinogen 0.2 Urine Leukocyte Esterase Negative Urine Culture Indicated Not ind Volume Urine Centrifuged 10 ml Urine HCG, Qualitative Negative Urine Comment Medical Decision Making Findings Patient refused IM medication. Via urinalysis was determined that that she is not .. She requested ibuprofen for headache. Differential Dx:Considerations: Include: TOTH-Cluster, TOTH-Migraine, TOTH- Hypertensive, TOHT-Muscular contraction, TOTH-Post lumbar puncture, Carbon monoxide toxicity, Close head injuyr, CVA, Fever induced, Hemorrhage-Epidural, Hemorrhage-Intracerebral, Hemorrhage-Subarachnoid, Hemorrhage-Subdural, Mass lesion, Meningitis, Post-traumtic, Pseudotumor cerebri, Sinusitis, Temporal arteritis, Trigeminal neuralgia, Other Departure Disposition: 01 HOME / SELF CARE / HOMELESS Impression: Primary Impression: Migraine Additional Impression: Headache Discharge Instructions: Headache Referrals: NO PRIMARY CARE PROVIDER (PCP) Signature Scribe Signature: r Attestation: Scribed for Gonzalo Martinez Agriculture Inspector by Gonzalo Pierre NP . 10/22/24 13:45 GONZALO MARTINEZ NP Oct 22, 2024 12:48
[2024-10-22 13:08] LABS: BILIRUBIN,URINE NEGATIVE (Neg); CLARITY,URINE CLEAR (Clear); COLOR,URINE YELLOW (Yellow); GLUCOSE, URINE NEGATIVE (Neg); KETONES,URINE NEGATIVE (Neg); LEUKOCYTE ESTERASE ,URINE NEGATIVE (Neg); NITRITES, URINE NEGATIVE (Neg); OCCULT BLOOD,URINE NEGATIVE (Neg); PH,URINE 7.5 (4.8-8.0); PROTEIN,URINE NEGATIVE (Neg); UROBILINOGEN,URINE 0.2 E.U/dL (0.2-1.0)
[2024-10-22 13:09] LABS: URINE HCG NEGATIVE (NEG)
[2024-10-22 13:17] LABS: UA COLLECTION TYPE NON-SPECIFIED
[2024-10-22] MEDS: metoclopramide 5 mg/ml inj IV ONE (13:45)
[2024-10-22] MEDS: ketorolac trometh 30MG/ML vial 30 MG/ML VIAL IM ONE (13:45)
[2024-10-22] MEDS: diphenhydrAMINE 50 mg/ml inj IM ONE (13:45)
[2024-10-22] MEDS: ibuprofen tablet 400 MG TABLET PO ONE (13:46)
== END 2024-10-22 13:52 | disposition home or self-care (01) ==
LOC: ER 11:52
DX: G43.909 Migraine, unspecified, not intractable, without status migrainosus (principal); F12.90 Cannabis use, unspecified, uncomplicated; F41.9 Anxiety disorder, unspecified; F41.0 Panic disorder [episodic paroxysmal anxiety]; Z91.030 Bee allergy status; Z88.8 Allergy status to other drugs, medicaments and biological substances; Z79.899 Other long term (current) drug therapy; Z59.00 Homelessness unspecified
CPT/HCPCS: 81003; 81025; 99282; 99283

== ENCOUNTER 2024-10-26 13:24 | Emergency (ER) | payer MEDICAID ==
[~2024-10-26] VITALS: Ht 160 cm; Wt 72.7 kg
[2024-10-26 13:28] VITALS: BP 133/76; PULSE 76; RESP 16; TEMP 97.6; O2SAT 99
--- NOTE | 2024-10-26 13:38 | Physician Documentation ---
History of Present Illness ~ General Chief Complaint: Headache Stated Complaint: N/V Time Seen by MD: 19:11 Primary Medical Doctor: NO PMD History of Present Illness Initial Comments This is a 24-year-old female who presents by EMS for headache with nausea and vomiting onset this morning, patient reports that she believes she may be has symptoms are similar to past . Patient reports unknown last menstrual period. History as above. Took three tablets of ibuprofen prior to arrival. Last test was negative four days ago. Medication Reconciliation Allergies: Coded Allergies: bee venom protein (honey bee) (Verified Allergy, Severe, 10/11/22) divalproex sodium (Verified Allergy, Unknown, 10/11/22) ziprasidone (Verified Allergy, Unknown, 10/11/22) Scheduled Ondansetron 8mg ODT (Ondansetron Odt), 1 TAB PO Q6H Ondansetron 8mg ODT (Ondansetron Odt), 1 TAB PO Q6H Rivaroxaban (Xarelto), 1 TAB PO DAILY, (Reported) Miscellaneous Medications Albuterol Sulfate/Budesonide (Airsupra 90-80 Mcg Inhaler), (Reported) Fluticasone Propionate (Fluticasone Propionate), (Reported) Past Medical History Past Medical History: Seizures, *PSYCH*, Anxiety, Panic Disorder Past Surgical History: no surgical history Alcohol Use: None Drug Use: marijuana Lives In: Homeless Review of Systems ROS All review of systems negative except as per HPI Physical Exam Physical Exam Vital Signs: Temperature: 97.6, Source: Temporal, Heart Rate: 76, Respiratory Rate: 16, BP: 133/76, Pulse Oximetry: 99, Weight: 72.730 Oxygen Flow Rate: 0 Physical Exam General: Patient is awake, alert, oriented x4 in no acute distress Head: Normocephalic and atraumatic. Eyes: Conjunctival normal. EOMI. PERRL. ENT: Mucous membranes moist. Neck: Supple, trachea is midline. Chest: Clear to auscultation bilaterally without rales, rhonchi, or wheezes. There is no accessory muscle use or retractions. Cardiac: RRR without murmurs, gallops, or rubs. Abd: Soft, nondistended, nontender, with normoactive bowel sounds. No guarding, rebound, or rigidity. Extremities: Normal strength. Normal range of motion. No deformities or edema. Progress Results/Orders Results/Orders Orders - MAYUR PEOPLES MD Ondansetron Disint. Tablet (Zofran Odt T (10/26/24 20:20) Completed Orders - MAYUR PEOPLES MD Ondansetron Disint. Tablet (Zofran Odt T (10/26/24 19:20) Prochlorperazine Tablet (Compazine Table (10/26/24 19:20) Acetaminophen 325mg Tablet (Tylenol Tabl (10/26/24 19:20) Metoclopramide Tablet (Reglan Tablet) (10/26/24 19:20) Diphenhydramine Capsule (Benadryl Capsul (10/26/24 19:20) Urinalysis, Cult If Indicated (10/26/24 19:16) Hcg, Ur Ql (10/26/24 19:16) Vital Signs 10/26/24 13:28 Temp 97.6 Pulse 76 Resp 16 B/P (MAP) 133/76 Pulse Ox 99 O2 Flow Rate 0 Laboratory Tests Test 10/26/24 13:51 10/26/24 19:53 White Blood Count 6.9 Red Blood Count 4.44 Hemoglobin 13.2 Hematocrit 39.3 Mean Corpuscular Volume 88.5 Mean Corpuscular Hemoglobin 29.7 Mean Corpuscular Hemoglobin Concent 33.5 Red Cell Distribution Width 13.9 Platelet Count 250 Mean Platelet Volume 8.2 Neutrophils (%) (Auto) 54.2 Lymphocytes (%) (Auto) 28.2 Monocytes (%) (Auto) 6.3 Eosinophils (%) (Auto) 10.8 H Basophils (%) (Auto) 0.5 Neutrophils # (Auto) 3.8 Lymphocytes # (Auto) 2.0 Monocytes # (Auto) 0.4 Eosinophils # (Auto) 0.7 Basophils # (Auto) 0.0 CBC Comment Sodium Level 137 Potassium Level 4.0 Chloride Level 103 Carbon Dioxide Level 25.3 Anion Gap 9 Blood Urea Nitrogen 14 Creatinine 0.52 Estimated GFR/1.73 m2 > 90 BUN/Creatinine Ratio 26.9 H Glucose Level 102 Calcium Level 8.9 Total Bilirubin 0.4 Aspartate Amino Transf (AST/SGOT) 13 Alanine Aminotransferase (ALT/SGPT) 18 Alkaline Phosphatase 90 Total Protein 7.9 Albumin 4.0 Globulin 3.9 Albumin/Globulin Ratio 1.0 L Lipase 27 Chemistry Comments Urine Specimen Description Cln catch midstream Urine Color Yellow Urine Clarity Clear Urine pH 7.5 Urine Specific [place] 1.015 Urine Protein Negative Urine Glucose (UA) Negative Urine Ketones Negative Urine Occult Blood Negative Urine Nitrite Negative Urine Bilirubin Negative Urine Urobilinogen 0.2 Urine Leukocyte Esterase Negative Urine Culture Indicated Not ind Volume Urine Centrifuged 10 ml Urine HCG, Qualitative Negative Urine Comment Medical Decision Making Findings Patient presents to the emergency room for evaluation of headache. She was seen here a few days ago for similar symptoms. Differentials include but are not limited to electrolyte disturbances, infectious process therefore emergent labs ordered which were reassuring. Patient is not . Symptoms likely viral in nature and we will treat her as such. Departure Disposition: HOME / SELF CARE / HOMELESS Impression: Primary Impression: Headache Additional Impression: Nausea and vomiting Condition: Stable Discharge Instructions: Vomiting, Adult Additional Instructions: You may add [id number] Tylenol to your ibuprofen Referrals: NO PRIMARY CARE PROVIDER (PCP) Prescriptions Ondansetron 8mg ODT (Ondansetron Odt) 8 Mg Tab.rapdis 1 TAB PO Q6H for nausea/vomiting for 3 Days, #12 TAB 0 Refills Prov: MAYUR PEOPLES MD 10/26/24 Education Educated: Patient Educated regarding: diagnosis, treatment, need for follow up Signature Scribe Signature: No scribe Attestation: The note accurately reflects work and decisions made by me.Mayur Peoples MD 10/26/24 19:25 CHERYL JIMENEZ Oct 26, 2024 13:38 MAYUR PEOPLES MD Oct 26, 2024 19:22
[2024-10-26 14:02] LABS: BASOPHILS % (AUTO) 0.5 % (0-1); EOSINOPHILS # (AUTO) 0.7 X10'3 (0-0.9); EOSINOPHILS % (AUTO) 10.8 % (0-6); HEMATOCRIT 39.3 % (35.0-45.0); HEMOGLOBIN 13.2 g/dl (12.0-16.0); LYMPHOCYTES % (AUTO) 28.2 % (21-51); MEAN CORPUSCULAR HEMOGLOBIN 29.7 PG (27.0-31.0); MEAN CORPUSCULAR HGB CONC 33.5 g/dL (33.0-36.5); MEAN CORPUSCULAR VOLUME 88.5 FL (78-98); MEAN PLATELET VOLUME 8.2 FL (7.4-10.4); MONOCYTES # (AUTO) 0.4 X10'3 (0-0.9); MONOCYTES % (AUTO) 6.3 % (2-12); NEUTROPHILS # (AUTO) 3.8 X10'3 (1.8-7.7); NEUTROPHILS % (AUTO) 54.2 % (42-75); PLATELET COUNT 250 X10'3 (140-440); RED BLOOD COUNT 4.44 X10'6 (4.20-5.60); RED CELL DISTRIBUTION WIDTH 13.9 % (11.5-14.5); WHITE BLOOD COUNT 6.9 X10'3 (4.5-11.0)
[2024-10-26 14:17] LABS: ALANINE AMINOTRANSFERASE 18 U/L (12-78); ALKALINE PHOSPHATASE 90 IU/L (46-116); ANION GAP 9 (8-16); ASPARTATE AMINO TRANSFERASE 13 U/L (10-37); BILIRUBIN,TOTAL 0.4 MG/DL (0.1-1.0); BLOOD UREA NITROGEN 14 MG/DL (7-18); BUN/CREATININE RATIO 26.9 (10.0-20.0); CALCIUM 8.9 MG/DL (8.5-10.1); CHLORIDE 103 MMOL/L (99-107); CREATININE 0.52 MG/DL (0.40-0.90); GLUCOSE 102 MG/DL (70-104); LIPASE 27 U/L (16-77); SODIUM 137 MMOL/L (135-145); TOTAL CARBON DIOXIDE 25.3 MMOL/L (24-32); TOTAL PROTEIN 7.9 G/DL (6.4-8.2); eCRCL 138 ML/MIN; eGFR > 90 ML/MIN
[2024-10-26] MEDS ORDERED: proCHLORperazine 10mg tablet PO ONE (19:20)
[2024-10-26] MEDS ORDERED: acetaminophen 325mg tablet PO ONE (19:20)
[2024-10-26] MEDS ORDERED: metoclopramide 10mg tablet PO ONE (19:20)
[2024-10-26] MEDS ORDERED: diphenhydrAMINE 25mg capsule PO ONE (19:20)
[2024-10-26] MEDS ORDERED: ondansetron 4mg rapidly disintigrating tab PO ONE ×2 (19:20→20:20)
[2024-10-26] MEDS ORDERED: ONDA-245 PO (19:25)
[2024-10-26 20:10] LABS: BILIRUBIN,URINE NEGATIVE (Neg); CLARITY,URINE CLEAR (Clear); COLOR,URINE YELLOW (Yellow); GLUCOSE, URINE NEGATIVE (Neg); KETONES,URINE NEGATIVE (Neg); LEUKOCYTE ESTERASE ,URINE NEGATIVE (Neg); NITRITES, URINE NEGATIVE (Neg); OCCULT BLOOD,URINE NEGATIVE (Neg); PH,URINE 7.5 (4.8-8.0); PROTEIN,URINE NEGATIVE (Neg); UROBILINOGEN,URINE 0.2 E.U/dL (0.2-1.0)
[2024-10-26 20:11] LABS: UA COLLECTION TYPE CLN CATCH MIDSTREAM
[2024-10-26 20:15] LABS: URINE HCG NEGATIVE (NEG)
== END 2024-10-26 18:13 | disposition left against medical advice (07) ==
LOC: ER 13:24
DX: R51.9 Headache, unspecified (principal); R11.2 Nausea with vomiting, unspecified; F41.9 Anxiety disorder, unspecified; F41.0 Panic disorder [episodic paroxysmal anxiety]; F12.90 Cannabis use, unspecified, uncomplicated; Z59.00 Homelessness unspecified; Z91.030 Bee allergy status; Z88.8 Allergy status to other drugs, medicaments and biological substances; Z79.899 Other long term (current) drug therapy
CPT/HCPCS: 36415; 80053; 81003; 81025; 83690; 85025; 99283; J7030

== ENCOUNTER 2024-10-26 18:54 | Emergency (ER) | payer MEDICAID ==
[2024-10-26] MEDS ORDERED: ONDA-245 PO (19:25)
--- NOTE | 2024-10-26 20:19 | Physician Documentation ---
History of Present Illness ~ Chief Complaint: Abdominal Pain w/vomiting Stated Complaint: VOMITTING Time Seen by MD: 20:07 Primary Medical Doctor: NO PMD HPI Patient is seen with some nausea and vomiting. She is also having a headache. Differentials include but are not limited to electrolyte disturbances therefore we will get labs. Medication Reconciliation Allergies: Coded Allergies: bee venom protein (honey bee) (Verified Allergy, Severe, 10/11/22) divalproex sodium (Verified Allergy, Unknown, 10/11/22) ziprasidone (Verified Allergy, Unknown, 10/11/22) Scheduled Ondansetron 8mg ODT (Ondansetron Odt), 1 TAB PO Q6H Rivaroxaban (Xarelto), 1 TAB PO DAILY, (Reported) Miscellaneous Medications Albuterol Sulfate/Budesonide (Airsupra 90-80 Mcg Inhaler), (Reported) Fluticasone Propionate (Fluticasone Propionate), (Reported) Past Medical History Past Medical History: Seizures, *PSYCH*, Anxiety, Panic Disorder Past Surgical History: no surgical history Alcohol Use: None Drug Use: marijuana Lives In: Homeless Review of Systems ROS All review of systems negative except as per HPI Physical Exam Physical Exam General: Patient is awake, alert, oriented x4 in no acute distress and well appearing.~ Head: Normocephalic and atraumatic. Eyes: Conjunctival normal. EOMI. PERRL. ENT: Mucous membranes moist. Neck: Supple, trachea is midline. Chest: Clear to auscultation bilaterally without rales, rhonchi, or wheezes. There is no accessory muscle use or retractions. Cardiac: RRR without murmurs, gallops, or rubs. Abd: Soft, nondistended, nontender, with normoactive bowel sounds. No guarding, rebound, or rigidity. Progress Results/Orders Results/Orders Orders - MAYUR PEOPLES MD Acetaminophen 325mg Tablet (Tylenol Tabl (10/26/24 20:15) Prochlorperazine Tablet (Compazine Table (10/26/24 20:15) Diphenhydramine Capsule (Benadryl Capsul (10/26/24 20:15) Metoclopramide Tablet (Reglan Tablet) (10/26/24 20:15) Medical Decision Making Findings Labs reassuring. Urinalysis negative. Departure Disposition: HOME / SELF CARE / HOMELESS Impression: Primary Impression: Vomiting Additional Impression: Headache Condition: Stable Discharge Instructions: General Headache Without Cause, Vomiting, Adult Referrals: NO PRIMARY CARE PROVIDER (PCP) Prescriptions Ondansetron 8mg ODT (Ondansetron Odt) 8 Mg Tab.rapdis 1 TAB PO Q6H for nausea/vomiting for 3 Days, #12 TAB 0 Refills Prov: MAYUR PEOPLES MD 10/26/24 Signature Scribe Signature: No scribe Attestation: The note accurately reflects work and decisions made by me.Mayur Peoples MD 10/26/24 20:19 MAYUR PEOPLES MD Oct 26, 2024 20:19
[2024-10-26] MEDS: acetaminophen 325mg tablet PO ONE (20:33)
[2024-10-26] MEDS: metoclopramide 10mg tablet PO ONE (20:33)
[2024-10-26] MEDS: diphenhydrAMINE 25mg capsule PO ONE (20:34)
[2024-10-26] MEDS: proCHLORperazine 10mg tablet PO ONE (20:34)
== END 2024-10-26 20:43 | disposition home or self-care (01) ==
LOC: ER 18:55
DX: R11.2 Nausea with vomiting, unspecified (principal); R51.9 Headache, unspecified; F41.9 Anxiety disorder, unspecified; F41.0 Panic disorder [episodic paroxysmal anxiety]; F12.90 Cannabis use, unspecified, uncomplicated; Z91.030 Bee allergy status; Z88.8 Allergy status to other drugs, medicaments and biological substances; Z79.899 Other long term (current) drug therapy; Z59.00 Homelessness unspecified
CPT/HCPCS: 99284; Q0163; Q0164

== ENCOUNTER 2024-11-01 21:46 | Emergency (ER) | payer MEDICAID ==
[~2024-11-01] VITALS: Ht 162.6 cm; Wt 77.0 kg
[~2024-11-01 21:46] MED LIST changes: +ONDA-245 PO
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
[2024-11-02] MEDS ORDERED: AMOX-580 PO (00:57)
[2024-11-02] MEDS ORDERED: NAPR-56 PO (00:57)
[2024-11-02] MEDS: amox tr/potassium clavulanate 875/125mg TAB PO ONE (01:07)
[2024-11-02 01:14] VITALS: BP 125/72; PULSE 86; RESP 16; TEMP 98.6; O2SAT 99
== END 2024-11-02 01:16 | disposition home or self-care (01) ==
LOC: ER 21:47
DX: S50.12XA Contusion of left forearm, initial encounter (principal); F12.90 Cannabis use, unspecified, uncomplicated; F41.9 Anxiety disorder, unspecified; F41.0 Panic disorder [episodic paroxysmal anxiety]; Z91.030 Bee allergy status; Z88.5 Allergy status to narcotic agent; Z59.00 Homelessness unspecified; Z79.899 Other long term (current) drug therapy; W54.0XXA Bitten by dog, initial encounter; Y93.89 Activity, other specified; Y92.89 Other specified places as the place of occurrence of the external cause; Y99.8 Other external cause status
CPT/HCPCS: 99283; A6258